=== PATIENT | female | born 1995 | race Caucasian/White ===

== ENCOUNTER 2017-06-20 05:48 | Day surgery (SDC) | payer OTHER ==
[2017-06-19 12:03] VITALS: BMI 40.5
[2017-06-20] VITALS (11 sets, daily range): BP systolic 103–129; BP diastolic 62–83; PULSE 78–98; RESP 17–18; Ht 149.9 cm; Wt 92.5 kg
[~2017-06-20] VITALS: Ht 149.9 cm; Wt 92.5 kg
[~2017-06-20 05:48] MED LIST: ACET325T33 PO; ACET325T45 PO; CIPR500T4 PO; FERR240T9 PO; PREN-39 PO; Z-PACK
[2017-06-20] MEDS ORDERED: CEFAZOLIN 2 GM/50 ML (PMX) 50 ML IVPB SCH (06:00)
[2017-06-20] MEDS ORDERED: BUPIVACAINE 0.5%/EPI (SDV) 30 ML INJ ONE (06:50)
[2017-06-20] MEDS ORDERED: PROPOFOL 20 ML ONE (07:39)
[2017-06-20] MEDS ORDERED: ROCURONIUM 50 MG INJ ONE (07:39)
[2017-06-20] MEDS ORDERED: LIDOCAINE 2% (SDV) 5 ML INJ ONE (07:39)
[2017-06-20] MEDS ORDERED: FENTAnyl 50 MCG/ML VIAL ONE ×2 (07:40→08:40)
[2017-06-20] MEDS ORDERED: MIDAZOLAM 1 MG/ML 2 ML INJ ONE (07:40)
--- NOTE | 2017-06-20 07:51 | HPN ---
Date/Time of Note Date/Time of Note DATE: 06/20/17 TIME: 07:50 Interval H&P Admission Note Pt. seen H&P reviewed: No system changes CAM MENDOZA Jun 20, 2017 07:51
[2017-06-20] MEDS ORDERED: ROPIVACAINE 0.2% 20 ML VIAL ONE (07:54)
[2017-06-20] MEDS ORDERED: CEFAZOLIN 1 GM INJ ONE (07:56)
[2017-06-20] MEDS ORDERED: PHENYLephrine (100 MCG/ML) 5ML SYG ONE (07:57)
[2017-06-20] MEDS ORDERED: FAMOTIDINE 20 MG INJ ONE (08:08)
[2017-06-20] MEDS ORDERED: ONDANSETRON 4 MG INJ ONE (08:08)
[2017-06-20] MEDS ORDERED: DEXAMETHASONE 4 MG/ML 1 ML INJ ONE (08:08)
[2017-06-20] MEDS ORDERED: SUGAMMADEX SODIUM 200 MG/2 ML VIAL IV ONE (08:34)
--- NOTE | 2017-06-20 09:04 | OPR ---
Date/Time of Note Date/Time of Note DATE: 06/20/17 TIME: 09:02 Operative Report Preoperative Diagnosis symptomatic biliary colic Postoperative Diagnosis same Operation/Procedure Performed Laparoscopic cholecystectomy Surgeon Patrick Mendoza MD FACS [employer] Supervisor none Second [employer] Supervisor: Christina RAY Anesthesia Type: general Estimated Blood Loss: minimal Transfusion none Specimen Gallbladder Grafts/Implants none Tubes/Drains none Complications none Pt Condition Post Procedure: stable Disposition: PACU Indications Patient is a 22-year-old female with symptomatic cholelithiasis, and biliary colic. Patient has had multiple attacks at this point has been indications to proceed with surgical removal of the gallbladder as definitive therapy. Procedure Description She was brought to the operating room and placed supine on the table. A timeout was performed, preoperative antibiotics been given, sequential compression devices were in place prior to induction of anesthesia. This point the abdomen was prepped and draped as per standard surgical fashion. All pressure voids were all carefully padded. Next, a supraumbilical incision site was chosen. After infiltration of Marcaine and a 5 mm incision was made, Optiview access into the abdomen was obtained. It was insufflated to be septations. The direct visualization the remaining 3 trochars were placed two 5 mm trochars in the right upper quadrant and a 12 mm trocar in the subxiphoid area. The dome of the gallbladder was grasped very superior and cephalad. Cystic duct and artery were both skeletonized until the critical view was obtained. There were both clipped and divided as per routine. The gallbladder was next from the liver bed without any difficulty. Liver looked very fatty. There is no aberrant biliary anatomy identified. Gallbladder was distended and appeared to have an acute on chronic cholecystitis picture. Removal of the gallbladder from the liver bed everything was completely hemostatic. There was no biliary spillage. At this point the gallbladder was placed into an endoscopic bag, removed from the subxiphoid incision site. Bone marrow trocar was removed and a transvaginal suture with an 0 Vicryl was placed to close the opening. All trochars removed under direct visualization there was no bleeding from any of the incision sites. All incision sites were infiltrated with Marcaine and closed with Monocryl suture. Dermabond was applied to all incision sites. Patient was awakened from anesthesia extubated and transferred stable condition to the recovery room. At the end of the case there was no complications. The sponge needle and instrument counts were reported to be correct but nursing staff. PATRICK MENDOZA Jun 20, 2017 09:04
--- NOTE | 2017-06-20 09:05 | PDOCDIS ---
Discharge Instructions CONDITION Patient Condition: Good HOME CARE INSTRUCTIONS: Diet Instructions: Low Fat /Cholesterol ACTIVITY: Activity Restrictions: No Restrictions FOLLOW UP/APPOINTMENTS Follow-up Plan call office for follow up in 2 weeks: [phone] SCHOOL/WORK RELEASE May return to School/Work with: No Restrictions CAM MENDOZA Jun 20, 2017 09:05
[2017-06-20] MEDS ORDERED: ONDANSETRON 4 MG INJ IV STA (09:58)
[2017-06-20] MEDS ORDERED: HYDROCODONE/APAP (10/325) TAB PO ONE (10:00)
== END 2017-06-20 10:40 | disposition home or self-care (01) ==
LOC: SDS 05:48
PROVIDERS: ATTEND Surgery Surgical Oncology
DX: K80.12 Calculus of gallbladder with acute and chronic cholecystitis without obstruction (principal)
CPT/HCPCS: 47562; J0690; J1100; J2250; J2370; J2405; J2795; J3010; Z7512; Z7610

== ENCOUNTER 2018-03-08 09:26 | Emergency (ER) | END 2018-03-08 12:02 | disposition home or self-care (01) ==

== ENCOUNTER 2018-05-28 11:25 | Day surgery (SDC) | END 2018-05-28 18:07 | disposition home or self-care (01) ==